=== PATIENT | female | born 1945 | race Caucasian/White ===

== ENCOUNTER 2022-06-25 09:43 | Outpatient (CLI) | payer MEDICARE, OTHER, SELFPAY ==
[2022-06-25 17:30] LABS: Chloride* 106 mmol/L (96-114); Potassium* 4.3 mmol/L (3.6-5.1); Sodium* 139 mmol/L (135-149)
[2022-06-25 17:33] LABS: Blood Urea Nitrogen* 12 mg/dL (7-30); Carbon Dioxide* 28 mmol/L (20-32); Creatinine* 0.6 mg/dL (0.5-1.5); Estimated Glomerular Filt Rate 93 ml/min; Glucose* 108 mg/dL (60-115)
[2022-06-25 17:34] LABS: Calcium* 9.2 mg/dL (8.4-10.6)
== END 2022-06-25 09:44 | disposition home or self-care (01) ==
LOC: LONREF 10:33
PROVIDERS: PCP Family Medicine; Visit Provider Family Medicine
DX: I10 Essential (primary) hypertension (principal)
CPT/HCPCS: 80048

== ENCOUNTER 2022-12-31 22:23 | Outpatient (CLI) | payer MEDICARE, OTHER, SELFPAY | END 2022-12-31 22:24 | disposition home or self-care (01) | LOC: AMB 02-19 13:20 | PROVIDERS: PCP Family Medicine; Visit Provider Family Medicine | DX: S09.90XA Unspecified injury of head, initial encounter (principal); W19.XXXA Unspecified fall, initial encounter; Y92.009 Unspecified place in unspecified non-institutional (private) residence as the place of occurrence of the external cause | CPT/HCPCS: A0998 ==

== ENCOUNTER 2022-12-31 22:44 | Emergency (ER) | payer MEDICARE, OTHER, SELFPAY ==
[2022-12-31 22:50] VITALS: BP 135/108; PULSE 70; RESP 16; TEMP 36.9; O2SAT 98; BMI 37.3
--- NOTE | 2022-12-31 23:06 | ED.HEATRA ---
HPI - Head Injury General Time Seen by Provider: 23:06 Date Seen: 12/31/22 Chief complaint: Head Injury/Pain Stated complaint: Slipped on ice, hit head, bleeding Time Seen by Provider: 12/31/22 23:06 Source: patient and RN notes reviewed Mode of arrival: ambulatory Limitations: no limitations History of Present Illness HPI Narrative: Patient is a very pleasant 77-year-old female with a history of hypertension who comes to the emergency room with head laceration after a fall tonight. Patient states that she had gone outside and did not realize that there was ice on the steps. She had taken her dog out to go to the bathroom the fell on the last 2 steps striking her head against a lattice fence. She did not hit her head on the ground or cement. She did not lose consciousness and has not had any other symptoms to include nausea vomiting visual changes or headache. There was a large amount of bleeding and EMS was called. The encouraged her to seek medical attention and thus they came to the ER. She feels that her tetanus has been updated within the past few years. She denies chest pain or shortness of breath. Denies any other injury to include back pain or buttock pain. Related Data Home Medications Medication Instructions Recorded Confirmed aspirin 81 mg tablet,delayed 81 mg PO QDAY 06/22/22 release ergocalciferol (vitamin D2) 10 mcg 400 unit PO DAILY 06/22/22 (400 unit) tablet cetirizine 10 mg tablet (Zyrtec) 10 mg PO QDAY PRN 06/25/22 06/25/22 Previous Rx's Medication Instructions Recorded amlodipine 5 mg tablet 5 mg PO QDAY #90 tabs 05/30/22 chlorthalidone 25 mg tablet 25 mg PO DAILY #90 tabs 06/25/22 metoprolol succinate 25 mg 25 mg PO QDAY #90 tabs 06/25/22 tablet,extended release 24 hr sertraline 50 mg tablet 50 mg PO QDAY #90 tabs 06/25/22 peg 3350-electrolytes 236 240 ml PO Q10M #4,000 mL 07/26/22 gram-22.74 gram-6.74 gram-5.86 gram solution (Golytely) Allergies Allergy/AdvReac Type Severity Reaction Status Date / Time No Known Drug Allergies Allergy Verified 12/31/22 22:54 Review of Systems Status of ROS: Reports: 10 or more systems reviewed and unremarkable except as noted in History and below Const: Denies: fever or chills Eyes: Denies: change in vision or blurry vision ENMT: Denies: throat pain, neck pain or throat swelling Cardio: Denies: chest pain or shortness of breath with exertion Resp: Denies: shortness of breath or cough GI: Denies: abdominal pain, nausea or vomiting Musculo: Denies: neck pain Neuro: Denies: headache or numbness in extremities Allergy/Immuno: Denies: throat swelling PFSH PFSH Surgical History History of bilateral knee arthroplasty S/P cataract extraction S/P tubal ligation Family History Father Coronary artery disease Mother Diabetes Sister No problems noted. Social History Smoking Status: Never smoker Exam Narrative: Exam Narrative: Patient is alert and oriented. EOM is full. Pupils are equal round reactive. Negative Weber sign. TMs bilaterally without air-fluid fluid line. Head at shows matted bloody hair over wound on left parietal scalp. No step-offs are palpated. Neck is supple. Range of motion full. No midline cervical tenderness. Heart with regular rate and rhythm and lungs are clear to auscultation. Palpation down thoracic and lumbar spine without pain. Moving all extremities. Const: Vital Signs, click to edit/add: Vital Signs - 24 hr 12/31/22 22:50 Temperature 98.4 F Pulse Rate [Pulse Oximeter] 70 Respiratory Rate 16 Blood Pressure [Ri ght Upper Arm] 135/108 H Pulse Oximetry 98 Oxygen Delivery Me thod Room Air Documenting provider has reviewed patient's vital signs: yes Course Course Hospital Course: At this time will have nursing at help wash hair so I can not see the full extent of this laceration. Did to talk to patient and her regarding head CT. Patient did not fall to the ground and in fact hit her head on some lattice. She has no loss of consciousness, visual changes, not on a blood thinner. I think it would be reasonable in spite of her age being over 65 to not proceed with a CT. Of course I do offer this to them and they would like to hold off and continue to monitor. I did speak of the risk of bleeding post head injury in a patient over 65. Reevaluation(s) Reevaluation #1: We were able to visualize laceration on the left parietal scalp. Laceration is measuring approximately 4 cm. It compromises epidermis and dermis. No foreign bodies are noted. After cleansing we were able to approximate the wound edges with 4 trell. Patient tolerated procedure well. Vital Signs Vital signs: Initial Vital Signs Temperature 98.4 F 12/31/22 22:50 Temperature Source Temporal Artery Scan 12/31/22 22:50 Pulse Rate 70 12/31/22 22:50 Pulse Rhythm 12/31/22 22:50 Pulse Strength 3+ Normal 12/31/22 22:50 Respiratory Rate 16 12/31/22 22:50 Blood Pressure 135/108 H 12/31/22 22:50 Blood Pressure Mean 117 12/31/22 22:50 Blood Pressure Position Sitting 12/31/22 22:50 Pulse Oximetry 98 12/31/22 22:50 Oxygen Delivery Method 12/31/22 22:50 Vital Signs Temperature 98.4 F 12/31/22 22:50 Pulse Rate 70 12/31/22 22:50 Respiratory Rate 16 12/31/22 22:50 Blood Pressure 135/108 H 12/31/22 22:50 Pulse Oximetry 98 12/31/22 22:50 Oxygen Delivery Method 12/31/22 22:50 Temperature 98.4 F 12/31/22 22:50 Pulse Rate 70 12/31/22 22:50 Respiratory Rate 16 12/31/22 22:50 Blood Pressure 135/108 H 12/31/22 22:50 Pulse Oximetry 98 12/31/22 22:50 Oxygen Delivery Method 12/31/22 22:50 MDM - Head Injury MDM Narrative Medical decision making narrative: 1. Head laceration repair-staple removal in 10 days time. Monitor for signs and symptoms of infection and seek medical attention for fever chills or purulent discharge. Tylenol may be used for discomfort as needed. 2. Closed head injury -there was no loss of consciousness tonight and I suspect with the appearance of the wound that perhaps patient had a nail or other sharp aspect of the fence that actually caused a laceration. There is no surrounding erythema or may serrated affect. Because of this and the fact patient is not on blood thinners and had no symptoms of a closed head injury I did discuss use of CT is not necessary in this particular instance. Certainly patient is over the age of 65 but she does not use blood thinners and watching and waiting seemed to be very reasonable. I did explain that she should return for confusion, visual changes, headache, vomiting, balance problems and monitor for these up to 4-6 weeks. They understand risks of not proceeding with CT and elect to wait. 3. Disposition - home at this time. Return as needed for worsening symptoms. Recommend no showering over the next 24 hours. thereafter may shower but no swimming or on dunking head in water. Until trell are removed. Staple removal 10 days time and Clinic of their choice. Medical Records Attestation: I reviewed the patient's medical records. Discharge Plan Discharge Clinical Impression: Laceration of head Patient Disposition: Home, Self-Care Condition: Improved Additional Instructions: Staple removal in 10 days time at the clinic. Monitor for infection and return as needed. Tylenol as needed for discomfort. Return or seek medical attention for vomiting, fever, worsening symptoms and as needed. Prescriptions: No Action amlodipine 5 mg tablet 5 mg PO QDAY Qty: 90 3RF aspirin 81 mg tablet,delayed release (DR/EC) 81 mg PO QDAY ergocalciferol (vitamin D2) 10 mcg (400 unit) tablet 400 unit PO DAILY cetirizine [Zyrtec] 10 mg tablet 10 mg PO QDAY PRN chlorthalidone 25 mg tablet 25 mg PO DAILY Qty: 90 3RF metoprolol succinate 25 mg tablet extended release 24 hr 25 mg PO QDAY Qty: 90 3RF sertraline 50 mg tablet 50 mg PO QDAY Qty: 90 3RF peg 3350-electrolytes [Golytely] 236-22.74-6.74 -5.86 gram recon soln 240 ml PO Q10M Qty: 4000 0RF Rx Instructions: until fecal effluent is clear Follow Up/Referrals: Shmuel Keller MD [Primary Care Provider] - Stand Alone Forms: [facility] Info Instructions
== END 2022-12-31 23:53 | disposition home or self-care (01) ==
PROVIDERS: Emergency Provider Family Medicine; PCP Family Medicine
DX: S01.01XA Laceration without foreign body of scalp, initial encounter (principal); S09.90XA Unspecified injury of head, initial encounter; W00.1XXA Fall from stairs and steps due to ice and snow, initial encounter
CPT/HCPCS: 12002; 99283

== ENCOUNTER 2023-05-22 10:32 | Outpatient (CLI) | payer MEDICARE, OTHER, SELFPAY ==
[2023-05-22 10:38] VITALS: BP 137/81; PULSE 52; RESP 16; O2SAT 95
[2023-05-22] MEDS: TETRACAINE 0.5% OPHTH 1 DROP EYE-LEFT ×3 (10:42→11:18)
[2023-05-22] MEDS: BRIMONIDINE TARTRATE 0.2% OPHTH 1 DROP EYE-LEFT ×2 (10:43→11:23)
--- NOTE | 2023-05-22 11:27 | W.PM.OPTPROC ---
Procedure Note Date of procedure: 05/22/23 [address] [facility] bill your pro fee for this procedure?: Yes Procedure Description: SURGEON: Marichuy Villavicencio MD PREOPERATIVE DIAGNOSIS: Posterior capsular opacity, left eye POSTOPERATIVE DIAGNOSIS: Posterior capsular opacity, left eye PROCEDURE: YAG laser capsulotomy, left eye ANESTHESIA: Topical. ESTIMATED BLOOD LOSS: None PATHOLOGY SPECIMEN: None COMPLICATIONS: None INDICATIONS: See consult note for details. The risks, benefits and alternatives of the procedure were explained to the patient, who elected to proceed and signed informed consent to do so. PROCEDURE: The patient was brought to the pre-holding area where the left eye was identified as the operative eye. I placed my initials above this eye. The patient received 2 sets of 1 drop of 0.5% tetracaine and 1 drop of 1% tropicamide. They also received 1 drop of 0.2% brimonidine. They received 1 drop of 0.5% tetracaine immediately prior to bringing them back for the procedure. The patient was then brought to the procedure room where the left eye was again identified as the operative eye. A YAG Santiago capsulotomy lens was placed on the eye. The laser was administered using a total number of 9 shots with an energy of 2.4 mJ per shot for a total energy of 22 mJ. The patient tolerated the procedure well. DISPOSITION: The patient was taken back to the pre-holding area and given 1 drop of 0.2% brimonidine in the left eye. They were discharged to home in stable condition. The patient was instructed to call me or go to the emergency department with any sudden change, including dramatic loss of vision, severe pain in the eye or eyebrow region, nausea, or vomiting. The patient was instructed to use the 0.2% brimonidine 1 drop 2 times a day in the left eye for 1 week. The patient will follow up in the clinic in 1-2 weeks
== END 2023-05-22 11:25 | disposition home or self-care (01) ==
LOC: EYE PRC 10:33
PROVIDERS: PCP Family Medicine; Visit Provider Ophthalmology
DX: H26.9 Unspecified cataract (principal)
CPT/HCPCS: 66821; A9270

== ENCOUNTER 2023-06-28 09:39 | Outpatient (CLI) | payer MEDICARE, OTHER, SELFPAY | END 2023-06-28 09:40 | disposition home or self-care (01) | PROVIDERS: PCP Family Medicine; Visit Provider Family Medicine | DX: I10 Essential (primary) hypertension (principal) | CPT/HCPCS: 80048 ==

== ENCOUNTER 2023-08-21 11:14 | Outpatient (CLI) | payer MEDICARE, OTHER, SELFPAY ==
[2023-08-21 11:21] VITALS: BP 127/78; PULSE 55; RESP 16; O2SAT 98
[2023-08-21] MEDS: TETRACAINE 0.5% OPHTH 1 DROP EYE-RIGHT ×3 (11:24→11:49)
[2023-08-21] MEDS: BRIMONIDINE TARTRATE 0.2% OPHTH 1 DROP EYE-RIGHT ×2 (11:24→11:55)
--- NOTE | 2023-08-21 12:03 | W.PM.OPTPROC ---
Procedure Note Date of procedure: 08/21/23 Will [facility] bill your pro fee for this procedure?: Yes Procedure Description: SURGEON: Marichuy Villavicencio MD PREOPERATIVE DIAGNOSIS: Posterior capsular opacity, right eye POSTOPERATIVE DIAGNOSIS: Posterior capsular opacity, right eye PROCEDURE: YAG laser capsulotomy, right eye ANESTHESIA: Topical. ESTIMATED BLOOD LOSS: None PATHOLOGY SPECIMEN: None COMPLICATIONS: None INDICATIONS: See consult note for details. The risks, benefits and alternatives of the procedure were explained to the patient, who elected to proceed and signed informed consent to do so. PROCEDURE: The patient was brought to the pre-holding area where the right eye was identified as the operative eye. I placed my initials above this eye. The patient received 2 sets of 1 drop of 0.5% tetracaine and 1 drop of 1% tropicamide. They also received 1 drop of 0.2% brimonidine. They received 1 drop of 0.5% tetracaine immediately prior to bringing them back for the procedure. The patient was then brought to the procedure room where the right eye was again identified as the operative eye. A YAG Santiago capsulotomy lens was placed on the eye. The laser was administered using a total number of 11 shots with an energy of 2.4 mJ per shot for a total energy of 26 mJ. The patient tolerated the procedure well. DISPOSITION: The patient was taken back to the pre-holding area and given 1 drop of 0.2% brimonidine in the right eye. They were discharged to home in stable condition. The patient was instructed to call me or go to the emergency department with any sudden change, including dramatic loss of vision, severe pain in the eye or eyebrow region, nausea, or vomiting. The patient was instructed to use the 0.2% brimonidine 1 drop 2 times a day in the right eye for 1 week. The patient will follow up in the clinic in 1-2 weeks.
== END 2023-08-21 11:56 | disposition home or self-care (01) ==
LOC: EYE PRC 11:14
PROVIDERS: PCP Family Medicine; Visit Provider Ophthalmology
DX: H26.9 Unspecified cataract (principal)
CPT/HCPCS: 66821; A9270